=== PATIENT | female | born 1985 | race Caucasian/White ===

== ENCOUNTER 2020-05-12 18:56 | Emergency (ER) | payer BC ==
[~2020-05-12] VITALS: Ht 167.6 cm; Wt 56.7 kg
[2020-05-12 19:20] VITALS: BP 113/74
[2020-05-12] MEDS ORDERED: ADDERALL 20 MG20 M1 PO (19:23)
[2020-05-12] MEDS ORDERED: TRIAMCINOLONE A80 G2 TOP (19:58)
== END 2020-05-12 20:38 | disposition home or self-care (01) ==
LOC: M.ERS 18:56
DX: L25.9 Unspecified contact dermatitis, unspecified cause (principal)

== ENCOUNTER 2020-12-16 17:10 | Emergency (ER) | payer OTHER ==
[~2020-12-16] VITALS: Ht 167.6 cm; Wt 54.9 kg
[~2020-12-16 17:10] MED LIST: ADDERALL 20 MG20 M1 PO; TRIAMCINOLONE A80 G2 TOP
[2020-12-16] MEDS ORDERED: ZOFRAN ODT4 MG PO (18:19)
[2020-12-16] MEDS ORDERED: BUTALB-APAP-CA1 EACH PO (18:19)
[2020-12-16 18:28] VITALS: BP 125/74
== END 2020-12-16 18:29 | disposition home or self-care (01) ==
LOC: M.ERS 17:10
DX: G43.909 Migraine, unspecified, not intractable, without status migrainosus (principal); Z79.899 Other long term (current) drug therapy